=== PATIENT | male | born 1950 | race Caucasian/White ===

== ENCOUNTER 2022-04-11 13:50 | Inpatient (IN) | payer OTHER ==
[~2022-04-11] VITALS: Ht 170.2 cm; Wt 102.5 kg
[2022-04-11 13:58] VITALS: BP_SYST 147
[2022-04-11] MEDS ORDERED: KETOROLAC TROMETHAMINE 30 MG VIAL IVP ONE (14:45)
[2022-04-11] MEDS ORDERED: CLINDAMYCIN 900 mg/50mL D5W 50 ML IV ONE (14:45)
[2022-04-11 15:29] LABS: BASOPHILS % (AUTO) 0.3 % (0.0-2.0); EOSINOPHILS % (AUTO) 0.1 % (0.0-4.0); HEMATOCRIT 41.2 % (36-54); HEMOGLOBIN 13.9 g/dL (14.0-18.0); LYMPHOCYTES # (AUTO) 0.6 K/uL (1.0-5.5); LYMPHOCYTES % (AUTO) 4.3 % (20.5-51.5); MEAN CORPUSCULAR HEMOGLOBIN 29 pg (27-31); MEAN CORPUSCULAR HGB CONC 34 % (32-36); MEAN CORPUSCULAR VOLUME 86 fL (79.0-98.0); MONOCYTES # (AUTO) 0.9 K/uL (0.0-1.0); MONOCYTES % (AUTO) 6.4 % (1.7-9.3); NEUTROPHILS % (AUTO) 88.9 % (40.0-70.0); PLATELET COUNT (AUTO) 170 K/uL (130-430); RED BLOOD CELL COUNT(AUTO) 4.81 MIL/uL (4.2-6.2); RED CELL DISTRIBUTION WIDTH 14.2 % (9.0-15.0); WHITE BLOOD COUNT (AUTO) 14.7 K/uL (4.8-10.8)
[2022-04-11 15:39] LABS: CREATININE 1.01 mg/dL (0.55-1.30)
[2022-04-11 15:45] LABS: ALBUMIN 3.4 g/dL (3.4-4.8); TOTAL BILIRUBIN 0.8 mg/dL (0.0-1.0)
[2022-04-11] MEDS ORDERED: KETOROLAC TROMETHAMINE 30 MG VIAL ONE (17:02)
[2022-04-11] MEDS ORDERED: MORPHINE 2 MG/ML INJ. SYRINGE IVP ONE (18:00)
[2022-04-11] MEDS ORDERED: ONDANSETRON HCL 4 MG/2 ML VIAL IVP ONE (18:00)
[2022-04-11] MEDS ORDERED: AMPICILLIN SODIUM/SULBACTAM NA 3 GM in NS 100 ML IV ONE (18:00)
[2022-04-11] MEDS ORDERED: AMPICILLIN SODIUM/SULBACTAM NA 3 GM VIAL ONE (18:19)
[2022-04-11] MEDS ORDERED: ONDANSETRON HCL 4 MG/2 ML VIAL IVP PRN (18:45)
[2022-04-11] MEDS ORDERED: LISI40TA20 PO (18:59)
[2022-04-11] MEDS ORDERED: LIP40 PO (18:59)
[2022-04-11] MEDS ORDERED: DIPHTH,PERTUSS(ACELL),TET VAC 0.5 ML VIAL (Tdap) I.M. ONE (19:00)
[2022-04-11] MEDS ORDERED: LISI10TA29 PO (19:04)
[2022-04-12] MEDS ORDERED: CLINDAMYCIN 900 mg/50mL D5W 50 ML IV ONE (00:48)
[2022-04-12] MEDS ORDERED: AMPICILLIN SODIUM/SULBACTAM NA 3 GM VIAL ONE (00:48)
[2022-04-12 01:11] VITALS: BP_SYST 134
[2022-04-12] MEDS: CLINDAMYCIN 900 mg/50mL D5W 50 ML IV SCH ×3 (02:44→17:24)
[2022-04-12] MEDS ORDERED: AMPICILLIN SODIUM/SULBACTAM NA 3 GM in NS 100 ML IV SCH (03:00)
[2022-04-12 07:43] VITALS: BP_SYST 130
[2022-04-12] MEDS: MORPHINE 4 MG INJ. 4 MG/ML VIAL IVP PRN ×2 (08:24→13:41)
[2022-04-12] MEDS: VANCOMYCIN HCL 1,500 MG in NS 250 ML IV SCH (12:04)
[2022-04-12 15:16] VITALS: BP_SYST 148
[2022-04-12] MEDS ORDERED: NALOXONE HCL 0.4 MG/ML AMP (NARCAN) IVP PRN (17:15)
[2022-04-12] MEDS: HYDROmorphone 1 MG/ML INJ. CARTRIDGE IVP PRN ×2 (17:25→21:59)
[2022-04-12 21:05] VITALS: BP_SYST 149
[2022-04-13 00:38] VITALS: BP_SYST 142
[2022-04-13] MEDS: CLINDAMYCIN 900 mg/50mL D5W 50 ML IV SCH ×3 (01:19→17:07)
[2022-04-13 08:00] VITALS: BP_SYST 151
[2022-04-13] MEDS ORDERED: NS IRRIG SOLN 1000 ML IR ONE (10:40)
[2022-04-13] MEDS ORDERED: PROPOFOL 200MG/ 20ML VIAL (DIPRIVAN) IV ONE (10:40)
[2022-04-13] MEDS ORDERED: BUPIVACAINE /EPINEPHRINE/PF 0.5% 30 ML VIAL INJ ONE (10:40)
[2022-04-13] MEDS ORDERED: fentaNYL CITRATE/PF 100 MCG/2 ML AMP IVP ONE (10:40)
[2022-04-13] MEDS ORDERED: MIDAZOLAM HCL 5 MG/5 ML VIAL IVP ONE (10:40)
[2022-04-13] MEDS ORDERED: KETAMINE HCL 500 MG/10 ML VIAL IVP ONE (10:40)
[2022-04-13] MEDS ORDERED: LR 1,000 ML IV.SOLN IV ONE (10:40)
[2022-04-13] MEDS ORDERED: HYDROmorphone 2 MG/ML VIAL ONE (11:35)
[2022-04-13] MEDS: HYDROmorphone 1 MG/ML INJ. CARTRIDGE IVP PRN ×3 (11:36→11:56)
[2022-04-13] MEDS ORDERED: hydrALAZINE HCL 20 MG/ML VIAL IVP PRN (11:45)
[2022-04-13] MEDS ORDERED: ONDANSETRON HCL 4 MG/2 ML VIAL IVP PRN (11:45)
[2022-04-13] MEDS ORDERED: NALOXONE HCL 0.4 MG/ML AMP (NARCAN) IVP PRN ×2 (11:45)
[2022-04-13] MEDS ORDERED: METOCLOPRAMIDE HCL 10 MG/2 ML VIAL IVP PRN (11:45)
[2022-04-13] MEDS ORDERED: KETOROLAC TROMETHAMINE 30 MG VIAL IVP PRN (11:45)
[2022-04-13] MEDS ORDERED: LABETALOL 100 MG/ 20ML VIAL IVP PRN (11:45)
[2022-04-13] MEDS ORDERED: HYDROmorphone 1 MG/ML INJ. CARTRIDGE IVP PRN (11:45)
[2022-04-13 12:30] VITALS: BP_SYST 145
[2022-04-13] MEDS ORDERED: LISINOPRIL 10 MG TABLET (PRINIVIL) PO ONE (13:15)
[2022-04-13] MEDS: VANCOMYCIN HCL 1,500 MG in NS 250 ML IV SCH (13:30)
[2022-04-13] MEDS ORDERED: METOPROLOL SUCCINATE 25 MG TAB.SR.24H (TOPROL XL) PO ONE (14:15)
[2022-04-13 16:00] VITALS: BP_SYST 149
[2022-04-13 20:00] VITALS: BP_SYST 124
[2022-04-13] MEDS: ATORVASTATIN 20 MG TABLET PO SCH (21:02)
[2022-04-14] MEDS: CLINDAMYCIN 900 mg/50mL D5W 50 ML IV SCH ×3 (01:11→17:08)
[2022-04-14 04:20] VITALS: BP_SYST 157
[2022-04-14 06:45] LABS: BASOPHILS % (AUTO) 0.6 % (0.0-2.0); EOSINOPHILS # (AUTO) 0.2 K/uL (0.0-0.4); EOSINOPHILS % (AUTO) 2.8 % (0.0-4.0); HEMATOCRIT 38.1 % (36-54); HEMOGLOBIN 13.1 g/dL (14.0-18.0); LYMPHOCYTES # (AUTO) 1.1 K/uL (1.0-5.5); LYMPHOCYTES % (AUTO) 13.7 % (20.5-51.5); MEAN CORPUSCULAR HEMOGLOBIN 29 pg (27-31); MEAN CORPUSCULAR HGB CONC 35 % (32-36); MEAN CORPUSCULAR VOLUME 85 fL (79.0-98.0); MONOCYTES # (AUTO) 0.8 K/uL (0.0-1.0); MONOCYTES % (AUTO) 9.2 % (1.7-9.3); NEUTROPHILS # (AUTO) 6.1 K/uL (1.8-7.7); NEUTROPHILS % (AUTO) 73.7 % (40.0-70.0); PLATELET COUNT (AUTO) 179 K/uL (130-430); RED BLOOD CELL COUNT(AUTO) 4.49 MIL/uL (4.2-6.2); RED CELL DISTRIBUTION WIDTH 13.5 % (9.0-15.0); WHITE BLOOD COUNT (AUTO) 8.3 K/uL (4.8-10.8)
[2022-04-14 07:13] LABS: ALBUMIN 2.7 g/dL (3.4-4.8); CALCIUM 8.7 mg/dL (8.4-11.0); CREATININE 0.79 mg/dL (0.55-1.30); TOTAL BILIRUBIN 0.7 mg/dL (0.0-1.0)
[2022-04-14 08:09] VITALS: BP_SYST 147
[2022-04-14] MEDS: METOPROLOL SUCCINATE 25 MG TAB.SR.24H (TOPROL XL) PO SCH (10:02)
[2022-04-14 11:45] LABS: C-REACTIVE PROTEIN QUANT 16.8 mg/dL (0-0.5)
[2022-04-14] MEDS: VANCOMYCIN HCL 1,250 MG in NS 250 ML IV SCH (12:24)
[2022-04-14] MEDS ORDERED: METOPROLOL SUCCINATE 25 MG TAB.SR.24H (TOPROL XL) PO ONE (12:45)
[2022-04-14 13:42] VITALS: BP_SYST 110
[2022-04-14 17:35] VITALS: BP_SYST 152
[2022-04-14] MEDS: ATORVASTATIN 20 MG TABLET PO SCH (21:41)
[2022-04-15] MEDS: VANCOMYCIN HCL 1,250 MG in NS 250 ML IV SCH (01:55)
[2022-04-15] MEDS: CLINDAMYCIN 900 mg/50mL D5W 50 ML IV SCH ×3 (01:56→17:43)
[2022-04-15 07:38] LABS: BASOPHILS # (AUTO) 0.1 K/uL (0.0-0.2); BASOPHILS % (AUTO) 1.1 % (0.0-2.0); EOSINOPHILS # (AUTO) 0.4 K/uL (0.0-0.4); EOSINOPHILS % (AUTO) 5.3 % (0.0-4.0); HEMATOCRIT 40.4 % (36-54); HEMOGLOBIN 13.8 g/dL (14.0-18.0); LYMPHOCYTES # (AUTO) 1.1 K/uL (1.0-5.5); LYMPHOCYTES % (AUTO) 16.4 % (20.5-51.5); MEAN CORPUSCULAR HEMOGLOBIN 29 pg (27-31); MEAN CORPUSCULAR HGB CONC 34 % (32-36); MEAN CORPUSCULAR VOLUME 84 fL (79.0-98.0); MONOCYTES # (AUTO) 0.7 K/uL (0.0-1.0); MONOCYTES % (AUTO) 9.9 % (1.7-9.3); NEUTROPHILS # (AUTO) 4.5 K/uL (1.8-7.7); NEUTROPHILS % (AUTO) 67.3 % (40.0-70.0); PLATELET COUNT (AUTO) 199 K/uL (130-430); RED BLOOD CELL COUNT(AUTO) 4.79 MIL/uL (4.2-6.2); RED CELL DISTRIBUTION WIDTH 13.8 % (9.0-15.0); WHITE BLOOD COUNT (AUTO) 6.6 K/uL (4.8-10.8)
[2022-04-15 07:59] LABS: ALBUMIN 2.8 g/dL (3.4-4.8); CALCIUM 9.3 mg/dL (8.4-11.0); CREATININE 0.88 mg/dL (0.55-1.30); TOTAL BILIRUBIN 0.4 mg/dL (0.0-1.0)
[2022-04-15] MEDS: METOPROLOL SUCCINATE 25 MG TAB.SR.24H (TOPROL XL) PO SCH (09:59)
[2022-04-15 10:00] VITALS: BP_SYST 141
[2022-04-15 12:00] VITALS: BP_SYST 139
[2022-04-15] MEDS ORDERED: METOPROLOL SUCCINATE 25 MG TAB.SR.24H (TOPROL XL) PO ONE (12:45)
[2022-04-15] MEDS ORDERED: CLIN-142 PO (12:55)
[2022-04-15] MEDS ORDERED: DAPTOmycin 500 MG in NS 50 ML IV SCH (14:00)
[2022-04-15 14:15] VITALS: BP_SYST 139
[2022-04-15 16:00] VITALS: BP_SYST 116
== END 2022-04-15 20:04 | disposition home health service (06) | DRG 854 ==
LOC: SED 13:50 → SMU 18:36 → STU 04-13 13:02
PROVIDERS: ADMIT Internal Medicine; ATTEND Internal Medicine
PROC: 05HY33Z Insertion of Infusion Device into Upper Vein, Percutaneous Approach (ICD-10-PCS; 2022-04-13)
PROC: 0JBK0ZZ Excision of Left Hand Subcutaneous Tissue and Fascia, Open Approach (ICD-10-PCS; principal; 2022-04-13 10:45)
DX: A41.9 Sepsis, unspecified organism (principal); E44.1 Mild protein-calorie malnutrition; L03.114 Cellulitis of left upper limb; M65.842 Other synovitis and tenosynovitis, left hand; I10 Essential (primary) hypertension; R73.03 Prediabetes; E78.00 Pure hypercholesterolemia, unspecified; R00.8 Other abnormalities of heart beat; Z20.822 Contact with and (suspected) exposure to COVID-19; Z88.0 Allergy status to penicillin; Z79.899 Other long term (current) drug therapy; Z68.34 Body mass index [BMI] 34.0-34.9, adult
CPT/HCPCS: 36415; 71045; 73201-TC; 76376; 80053; 80202; 83605; 85025; 85651-TC; 86140; 87040; 87070-TC; 87075-TC; 87081; 87101; 87186-TC; 90715; 93005; 93306; 96365; 96367; 96375; 99285; C1751; G0378; J0295; J0878; J1170; J1885; J2250; J2270; J2405; J2704; J3010; J3370; J3490; J7050; J7120; Q9967